=== PATIENT | female | born 1975 | race Caucasian/White ===

== ENCOUNTER 2021-11-03 02:14 | Emergency (ER) | payer MEDICAID ==
[~2021-11-03] VITALS: Ht 165.1 cm; Wt 70.5 kg
[2021-11-03] MEDS ORDERED: CYMBALTA60 M1 PO (02:23)
[2021-11-03] MEDS ORDERED: ZANAFLEX4 M1 PO (02:23)
[2021-11-03] MEDS ORDERED: ZYPREXA ZYDIS20 MG PO (02:23)
[2021-11-03] MEDS ORDERED: REMERON15 MG PO (02:23)
[2021-11-03] MEDS ORDERED: KLONOPIN 0.5MG0.5 MG PO (02:24)
[2021-11-03] MEDS ORDERED: LUNESTA3 M1 PO (02:24)
[2021-11-03 04:10] LABS: BASO # 0.04 K/mm3 (0.02-0.10); EOS # 0.43 K/mm3 (0.04-0.40); EOS % 5.4 % (1.0-5.0); HEMATOCRIT 34.6 % (37.0-47.0); HEMOGLOBIN 11.3 g/dL (12.5-16.0); LYMPH# 2.25 K/mm3 (1.50-4.00); MEAN CELL VOLUME 90 fl (78-100); MEAN CORPUSCULAR HEMOGLOBIN 29 pg (27-31); MEAN CORPUSCULAR HGB CONC 33 g/dL (33-37); MEAN PLATELET VOLUME 10.8 fl (7.4-10.4); MONO # 0.98 K/mm3 (0.20-0.80); PLATELET COUNT 286 K/mm3 (130-400); RED BLOOD COUNT 3.84 M/mm3 (4.10-5.30); RED CELL DISTRIBUTION WIDTH 16.9 % (11.5-14.5)
[2021-11-03 04:14] LABS: ALBUMIN 4.1 g/dL (3.5-5.0); POTASSIUM 3.3 mmol/L (3.5-5.1); SODIUM 136 mmol/L (136-145)
[2021-11-03 04:15] LABS: CALCIUM 9.5 mg/dL (8.3-10.5)
[2021-11-03 04:16] LABS: GLUCOSE 83 mg/dL (65-105)
[2021-11-03 04:17] LABS: CARBON DIOXIDE 25 mmol/L (22-29)
[2021-11-03 04:18] LABS: TOTAL BILIRUBIN 0.6 mg/dL (0.2-1.2)
[2021-11-03 04:22] LABS: AST-SGOT 73 U/L (5-34)
[2021-11-03 04:23] LABS: ACETAMINOPHEN < 1 ug/mL; ALT/SGPT 98 U/L (0-55)
[2021-11-03 04:33] LABS: URINE APPEARANCE CLOUDY; URINE BILIRUBIN NEGATIVE (NEGATIVE); URINE BLOOD TRACE (NEGATIVE); URINE COLOR YELLOW; URINE GLUCOSE NEGATIVE (NEGATIVE); URINE KETONE NEGATIVE (NEGATIVE); URINE LEUKOCYTE ESTERASE TRACE (NEGATIVE); URINE NITRATE NEGATIVE (NEGATIVE); URINE PROTEIN(semi-quant) TRACE (NEGATIVE); URINE UROBILINOGEN NORMAL (NORMAL)
[2021-11-03 13:27] VITALS: BP 123/78
== END 2021-11-03 14:07 ==
LOC: ED 02:14
PROVIDERS: Nurse Practitioner Family
DX: R45.851 Suicidal ideations (principal); F32.A Depression, unspecified; F22 Delusional disorders; F17.210 Nicotine dependence, cigarettes, uncomplicated; Z79.899 Other long term (current) drug therapy; Z20.822 Contact with and (suspected) exposure to COVID-19